=== PATIENT | female | born 1960 | race Caucasian/White ===

== ENCOUNTER 2022-06-13 15:59 | Inpatient (IN) | payer BC ==
[2022-06-13] MEDS ORDERED: Morphine 4 MG/ML VIAL ONE (18:00)
[2022-06-13] MEDS ORDERED: Ketorolac Tromethamine 30 MG/ML VIAL ONE (18:01)
[2022-06-13] MEDS ORDERED: Ondansetron PF 4 MG/2 ML Vial ONE (18:01)
[2022-06-13 18:02] LABS: #Monocytes 0.5 thou/uL (0.11-0.59); #Neutrophils 10.8 thou/uL (1.40-6.50); %Basophils 0.2 % (0.0-1.0); %Eosinophils 0.1 % (0.0-10.0); %Lymphocytes 8.2 % (21.0-51.0); %Monocytes 4.3 % (0.0-10.0); %Neutrophils 87.2 % (42.0-75.0); Hemoglobin 13.7 g/dL (12.0-16.0); Mean Corpuscular HGB CONC 34.7 g/dL (32.0-36.0); Mean Corpuscular Hemoglobin 32.9 pg (27.0-31.0); Mean Corpuscular Volume 94.8 fl (78.0-98.0); Mean Platelet Volume 8.8 fL (7.4-10.4); Platelet Count 229 10x3/uL (130-400); RBC Distribution Width 11.4 % (11.5-14.5); Red Blood Cell (RBC) Count 4.18 mill/uL (4.20-5.40); White Blood Cell (WBC) Count 12.4 10x3/uL (4.8-10.8)
[2022-06-13] MEDS ORDERED: Dextrose 5% in Water 1,000 ML IV PRN (18:03)
[2022-06-13] MEDS ORDERED: TETANUS, DIPHTHERIA TOX,ADULT (TDVAX) 0.5 ML VIAL IM ONE (18:03)
[2022-06-13] MEDS ORDERED: Ondansetron PF 4 MG/2 ML Vial IVP PRN (18:03)
[2022-06-13] MEDS ORDERED: Dextrose 50% Abboject 50 ML SYRINGE SLOW IVP PRN (18:03)
[2022-06-13] MEDS ORDERED: Morphine 4 MG/ML VIAL SLOW IVP PRN ×3 (18:03→19:34)
[2022-06-13] MEDS ORDERED: Ondansetron ODT 4 MG TAB PO PRN (18:03)
[2022-06-13] MEDS ORDERED: traMADol HCl 50 MG TAB PO PRN (18:08)
[2022-06-13] MEDS ORDERED: Cyclobenzaprine 10 MG TAB PO PRN (18:08)
[2022-06-13 18:21] LABS: ALT (SGPT) 10 U/L (8-55); AST (SGOT) 22 U/L (5-34); Albumin 4.4 g/dL (3.4-4.8); Alkaline Phosphatase 56 U/L (40-110); Anion Gap 17 mmol/L (10-20); BUN (Urea Nitrogen) 15 mg/dL (9.8-20.1); Bilirubin, Total 0.6 mg/dL (0.2-1.2); Calc. Creatinine Clearance 0 mL/min (70-130); Calcium 9.2 mg/dL (7.8-10.44); Carbon Dioxide 21 mmol/L (23-31); Chloride 104 mmol/L (98-107); Estimated GFR 85; Globulin 3.5 g/dL (2.4-3.5); Glucose 101 mg/dL (80-115); Potassium 3.6 mmol/L (3.5-5.1); Protein, Total 7.9 g/dL (5.8-8.1); Sodium 138 mmol/L (136-145)
[2022-06-13 18:38] LABS: Phosphorus 2.1 mg/dL (2.3-4.7)
[2022-06-13] MEDS ORDERED: Gabapentin 100 MG CAP PO SCH (18:45)
[2022-06-13 20:32] VITALS: BMI 20.4
[2022-06-13] MEDS: traMADol HCl 50 MG TAB PO SCH (20:49)
[2022-06-13] MEDS: Acetaminophen 500 MG TAB PO SCH (20:49)
[2022-06-13] MEDS: Famotidine 20 MG TAB PO SCH ×2 (20:50→20:52)
[2022-06-13] MEDS: Senokot S 8.6-50 MG TAB PO SCH (20:50)
[2022-06-13 23:12] LABS: SARS-CoV-2 NAA Rapid Test Not Detected (NotDetected)
[2022-06-13] MEDS ORDERED: Sodium Chloride 0.9% 1,000 ML IV SCH (23:55)
[2022-06-14] MEDS: Ketorolac Tromethamine 30 MG/ML VIAL IVP SCH ×5 (00:26→23:08)
[2022-06-14] MEDS: Acetaminophen 500 MG TAB PO SCH ×5 (00:28→23:09)
[2022-06-14] MEDS: traMADol HCl 50 MG TAB PO SCH ×5 (00:30→18:15)
[2022-06-14] MEDS: Gabapentin 100 MG CAP PO SCH ×3 (04:52→19:52)
[2022-06-14 06:41] LABS: #Eosinphils 0.2 thou/uL (0.0-0.7); #Lymphocytes 1.5 thou/uL (1.20-3.40); #Monocytes 0.6 thou/uL (0.11-0.59); #Neutrophils 3.3 thou/uL (1.40-6.50); %Basophils 0.7 % (0.0-1.0); %Eosinophils 2.8 % (0.0-10.0); %Lymphocytes 26.9 % (21.0-51.0); %Monocytes 10.7 % (0.0-10.0); %Neutrophils 58.9 % (42.0-75.0); Hemoglobin 11.9 g/dL (12.0-16.0); Mean Platelet Volume 8.9 fL (7.4-10.4); Platelet Count 172 10x3/uL (130-400); RBC Distribution Width 11.5 % (11.5-14.5); Red Blood Cell (RBC) Count 3.59 mill/uL (4.20-5.40); White Blood Cell (WBC) Count 5.6 10x3/uL (4.8-10.8)
[2022-06-14 07:10] LABS: Anion Gap 13 mmol/L (10-20); BUN (Urea Nitrogen) 21 mg/dL (9.8-20.1); Calc. Creatinine Clearance 70 mL/min (70-130); Calcium 8.4 mg/dL (7.8-10.44); Carbon Dioxide 22 mmol/L (23-31); Chloride 109 mmol/L (98-107); Estimated GFR 94; Glucose 105 mg/dL (80-115); Magnesium 1.9 mg/dL (1.6-2.6); Potassium 3.7 mmol/L (3.5-5.1); Sodium 140 mmol/L (136-145)
[2022-06-14 08:08] LABS: Phosphorus 4.4 mg/dL (2.3-4.7)
[2022-06-14] MEDS ORDERED: CEFAZOLIN 2 GM in Sodium Chloride 0.9% 100 ML IVPB SCH (08:15)
[2022-06-14] MEDS ORDERED: Magnesium 2 GM/50 ML(in water) 2 GM in Premix Bag 1 BAG IVPB SCH (09:00)
[2022-06-14] MEDS: Famotidine 20 MG TAB PO SCH ×2 (09:03→19:53)
[2022-06-14] MEDS: Senokot S 8.6-50 MG TAB PO SCH ×2 (09:03→19:53)
[2022-06-14] MEDS: Polyethylene Glycol 3350 17 GM Packet PO SCH (09:03)
[2022-06-14] MEDS ORDERED: Sodium Chloride 0.9% 100 ML ONE (13:44)
[2022-06-14] MEDS ORDERED: CEFAZOLIN 2 GM VIAL ONE (13:44)
[2022-06-14] MEDS ORDERED: Bupivacaine PF 0.5% 30 ML VIAL ONE (13:48)
[2022-06-14] MEDS ORDERED: Midazolam HCl 2 mg/2 ml Vial ONE ×2 (13:53→14:20)
[2022-06-14] MEDS ORDERED: Fentanyl 250 MCG/5 ML VIAL ONE (14:20)
[2022-06-14] MEDS ORDERED: Rocuronium Bromide 10 MG/ML (10ML VIAL) ONE (14:45)
[2022-06-14] MEDS ORDERED: Lidocaine 1% PF 5 ML VIAL ONE (14:45)
[2022-06-14] MEDS ORDERED: ePHEDrine 50 MG/ML VIAL ONE (14:45)
[2022-06-14] MEDS ORDERED: Ondansetron PF 4 MG/2 ML Vial ONE (14:45)
[2022-06-14] MEDS ORDERED: Dexamethasone 20 MG/5 ML VIAL ONE (14:45)
[2022-06-14] MEDS ORDERED: PROPOFOL 200 MG/20 ML VIAL ONE (14:45)
[2022-06-14] MEDS ORDERED: SUGAMMADEX SODIUM 200 MG/2 ML VIAL ONE (16:20)
[2022-06-14] MEDS: CEFAZOLIN 2 GM in Sodium Chloride 0.9% 100 ML IVPB SCH (23:08)
[2022-06-15] MEDS: Ketorolac Tromethamine 30 MG/ML VIAL IVP SCH ×2 (06:06→11:18)
[2022-06-15] MEDS: CEFAZOLIN 2 GM in Sodium Chloride 0.9% 100 ML IVPB SCH (06:07)
[2022-06-15] MEDS: Acetaminophen 500 MG TAB PO SCH ×2 (06:08→11:18)
[2022-06-15] MEDS: traMADol HCl 50 MG TAB PO SCH ×2 (06:08→11:18)
[2022-06-15] MEDS: Gabapentin 100 MG CAP PO SCH (06:08)
[2022-06-15] MEDS: Senokot S 8.6-50 MG TAB PO SCH (09:59)
[2022-06-15] MEDS: Polyethylene Glycol 3350 17 GM Packet PO SCH (10:00)
[2022-06-15] MEDS: Famotidine 20 MG TAB PO SCH (10:00)
[2022-06-15 12:39] VITALS: BP 138/82; TEMP 97
[2022-06-15] MEDS ORDERED: Pregabalin 50 MG CAP PO SCH (21:00)
== END 2022-06-15 12:00 | disposition home or self-care (01) | DRG 494 ==
LOC: ERS 15:59 → SURG A 18:03
PROVIDERS: ADMIT Surgery; ATTEND Surgery
PROC: 0PSG04Z Reposition Left Humeral Shaft with Internal Fixation Device, Open Approach (ICD-10-PCS; principal; 2022-06-14)
DX: S42.412A Displaced simple supracondylar fracture without intercondylar fracture of left humerus, initial encounter for closed fracture (principal); Z20.822 Contact with and (suspected) exposure to COVID-19; W55.12XA Struck by horse, initial encounter; Z85.72 Personal history of non-Hodgkin lymphomas; Z98.890 Other specified postprocedural states
CPT/HCPCS: 29105; 36415; 71045; 80048; 80053; 83735; 84100; 85025; 93005; 96374; 96375; C1713; J1100; J1885; J2250; J2270; J2405; J2704; J3010; J3475; J3490; J7030; J7050; Q0162; S0020; U0002

== ENCOUNTER 2022-11-28 10:33 | Day surgery (SDC) | payer BC ==
[2022-11-22 11:11] VITALS: BMI 20.2
[2022-11-28] MEDS ORDERED: CEFAZOLIN 2 GM VIAL ONE (12:08)
[2022-11-28] MEDS ORDERED: Sodium Chloride 0.9% 100 ML ONE (12:08)
[2022-11-28] MEDS ORDERED: fentaNYL PF 100 MCG/2 ML SYRINGE ONE (12:27)
[2022-11-28] MEDS ORDERED: ePHEDrine Sulfate 50 MG/10 ML VIAL ONE (12:46)
[2022-11-28] MEDS ORDERED: Lidocaine 1% PF 5 ML VIAL ONE (12:46)
[2022-11-28] MEDS ORDERED: Dexamethasone 20 MG/5 ML VIAL ONE (12:46)
[2022-11-28] MEDS ORDERED: PROPOFOL 200 MG/20 ML VIAL ONE (12:46)
[2022-11-28] MEDS ORDERED: Ondansetron PF 4 MG/2 ML Vial ONE (12:46)
[2022-11-28] MEDS ORDERED: Lidocaine 1% (PF) 30 ML VIAL ONE ×2 (13:10)
[2022-11-28] MEDS ORDERED: fentaNYL 50 mcg/mL 1 mL Vial ONE (14:15)
== END 2022-11-28 15:18 | disposition home or self-care (01) ==
LOC: SDC 10:33
PROVIDERS: ATTEND Orthopaedic Surgery
PROC: 0RPN04Z Removal of Internal Fixation Device from Right Wrist Joint, Open Approach (ICD-10-PCS; principal; 2022-11-28)
DX: T85.898A Other specified complication of other internal prosthetic devices, implants and grafts, initial encounter (principal); Y79.2 Prosthetic and other implants, materials and accessory orthopedic devices associated with adverse incidents
CPT/HCPCS: J1100; J2001; J2405; J2704; J3010; J3490